=== PATIENT | male | born 1945 | race Caucasian/White ===

== ENCOUNTER 2017-05-19 10:38 | Inpatient (IN) | payer MEDICARE, BC ==
[~2017-05-19] VITALS: Ht 185.4 cm; Wt 103.0 kg
[~2017-05-19 10:38] MED LIST: B COMPLEX1 TA2 PO; B-1250 MCG PO; ELITE MAGNESIUM1 TAB PO; EPA FISH OIL1000 MG PO; FE-2020 MG PO; LOPURIN300 MG PO; MAG-OX 400400 MG PO; MAGNESIUM PO; VITAMIN; [UNRECOGNIZED DRUG - OTHER] PO
[2017-05-19 12:47] VITALS: BP 131/71; PULSE 84; TEMP 98
[2017-05-19 13:41] LABS: BASO % 0.3 % (0.0-2.0); EOS # 0.1 (0.0-0.7); EOS % 1.4 % (0-4.0); GRAN # 4.2 (1.4-6.5); HEMATOCRIT 37.6 % (42.0-52.0); HEMOGLOBIN 12.6 g/dl (13.5-18.0); LYMPH # 0.7 (1.2-3.4); LYMPH % 12.2 % (20.0-51.0); MEAN CELL VOLUME 92 fl (80.0-100.0); MEAN CORPUSCULAR HEMOGLOBIN 31 pg (27.0-31.0); MEAN CORPUSCULAR HGB CONC 34 g/dl (33.0-37.0); MEAN PLATELET VOLUME 10.2 fl (7.4-10.4); MONO # 0.7 (0.1-0.6); MONO % 12.9 % (1.7-9.3); PLATELET COUNT 172 K/mm3 (130-400); RED BLOOD COUNT 4.08 M/mm3 (4.20-5.60); REDCELL DISTRIBUTION WIDTH-CV 15.5 % (11.5-14.5); WHITE BLOOD COUNT 5.7 K/mm3 (4.8-10.8)
[2017-05-19 13:46] LABS: PH 5 (5-8); SQUAMOUS EPITHELIAL 0-2 /hpf; URINE APPEARANCE Clear; URINE BACTERIA None Seen /hpf; URINE BILIRUBIN Negative (NEGATIVE); URINE BLOOD Negative (NEGATIVE); URINE COLOR Yellow; URINE GLUCOSE Negative (NEGATIVE); URINE KETONE Trace (NEGATIVE); URINE RBC 0-2 /hpf; URINE UROBILINOGEN Negative (NEGATIVE); URINE WBC 0-2 /hpf
[2017-05-19 13:47] LABS: ADJUSTED CALCIUM 8.7 mg/dL (8.4-10.2); ALBUMIN 3.6 gm/dL (3.5-5.0); BILIRUBIN,TOTAL 0.8 mg/dL (0.0-1.0); CALCIUM 8.4 mg/dL (8.4-10.2); CREATININE, serum 0.67 mg/dL (0.66-1.25); POTASSIUM 3.9 mmol/L (3.4-5.0); TOTAL PROTEIN 6.1 gm/dL (6.4-8.2)
[2017-05-19 13:52] LABS: INR 1.1 (0.8-3.0); PROTHROMBIN TIME 12.1 SECONDS (9.7-12.8)
[2017-05-19 16:01] VITALS: BP 114/50; PULSE 81; TEMP 98.8
[2017-05-19 16:45] VITALS: BP 112/57; PULSE 67
[2017-05-19 17:00] VITALS: BP 120/82; PULSE 84
[2017-05-19 18:01] VITALS: BP 130/81; PULSE 70
[2017-05-19] MEDS ORDERED: OMEGA-3 1000 MG1 CAP PO (20:17)
[2017-05-19] MEDS ORDERED: VITAMINC1000TA PO (20:18)
[2017-05-19] MEDS ORDERED: VITAMIN B11000 MCG/M IM (20:21)
[2017-05-19] MEDS ORDERED: MAGNESIUM200 MG PO (20:22)
[2017-05-19] MEDS ORDERED: CALCIUM 600MG+D1 TAB PO (20:23)
[2017-05-19] MEDS ORDERED: VITAMIN A10k PO (20:24)
[2017-05-19] MEDS ORDERED: D3-5050000 IU PO (20:25)
[2017-05-19] MEDS ORDERED: CENTRUM SILVER1 CTB PO (20:25)
[2017-05-19] MEDS ORDERED: NORVASC 5MG5 MG/TAB PO (20:26)
[2017-05-19] MEDS ORDERED: LOTENSIN20 MG PO (20:35)
[2017-05-19] MEDS ORDERED: PROSCAR 5MG5 MG PO (20:35)
[2017-05-19] MEDS ORDERED: ZYLOPRIM 300MG300 MG PO (20:36)
[2017-05-19] MEDS ORDERED: AMITRIPTYLINE H10 M1 PO (20:36)
[2017-05-19] MEDS ORDERED: XANAX 1MG1 MG PO (20:37)
[2017-05-19] MEDS ORDERED: ELIQUIS 5MG PO (20:37)
[2017-05-19] MEDS ORDERED: REQUIP 1MG T1 MG/TAB PO (20:38)
[2017-05-19] MEDS ORDERED: AMBIEN CR 12.12.5 MG PO (20:44)
[2017-05-19] MEDS ORDERED: LYRICA 100MG C100 M1 PO (20:45)
[2017-05-19 22:02] VITALS: BP 130/60; PULSE 103; TEMP 98.1
[2017-05-20] VITALS (7 sets, daily range): BP systolic 82–137; BP diastolic 46–71; PULSE 92–102; TEMP 97.5–99.1
[2017-05-21] VITALS (9 sets, daily range): BP systolic 93–125; BP diastolic 48–67; PULSE 73–128; TEMP 37.4
[2017-05-22] VITALS (14 sets, daily range): BP systolic 91–149; BP diastolic 43–72; PULSE 81–120; TEMP 97.7–100.3
[2017-05-22 07:48] LABS: HEMATOCRIT 34.3 % (42.0-52.0); HEMOGLOBIN 11.1 g/dl (13.5-18.0)
[2017-05-22 07:53] LABS: CALCIUM 8.2 mg/dL (8.4-10.2); CREATININE, serum 0.67 mg/dL (0.66-1.25); POTASSIUM 3.4 mmol/L (3.4-5.0)
[2017-05-22 09:38] LABS: BASO % 0.5 % (0.0-2.0); EOS # 0.2 (0.0-0.7); EOS % 3.6 % (0-4.0); GRAN # 4.4 (1.4-6.5); GRAN % 69.6 % (42.2-75.2); HEMATOCRIT 34.4 % (42.0-52.0); HEMOGLOBIN 11.1 g/dl (13.5-18.0); LYMPH # 0.6 (1.2-3.4); LYMPH % 9.6 % (20.0-51.0); MEAN CELL VOLUME 96 fl (80.0-100.0); MEAN CORPUSCULAR HEMOGLOBIN 31 pg (27.0-31.0); MEAN CORPUSCULAR HGB CONC 32 g/dl (33.0-37.0); MEAN PLATELET VOLUME 11.3 fl (7.4-10.4); MONO % 16.4 % (1.7-9.3); PLATELET COUNT 172 K/mm3 (130-400); RED BLOOD COUNT 3.57 M/mm3 (4.20-5.60); REDCELL DISTRIBUTION WIDTH-CV 15.5 % (11.5-14.5); WHITE BLOOD COUNT 6.3 K/mm3 (4.8-10.8)
[2017-05-22 12:03] LABS: PH 5 (5-8); SQUAMOUS EPITHELIAL None Seen /hpf; URINE APPEARANCE Clear; URINE BACTERIA None Seen /hpf; URINE BILIRUBIN Negative (NEGATIVE); URINE BLOOD 1+ (NEGATIVE); URINE COLOR Yellow; URINE GLUCOSE Negative (NEGATIVE); URINE KETONE Negative (NEGATIVE); URINE RBC >50 /hpf; URINE UROBILINOGEN >=4.0 mg/dL (NEGATIVE); URINE WBC 0-2 /hpf
[2017-05-23] VITALS (7 sets, daily range): BP systolic 88–128; BP diastolic 49–64; PULSE 79–109; TEMP 97.3–99
[2017-05-23 07:08] LABS: HEMATOCRIT 31.1 % (42.0-52.0)
[2017-05-24 02:25] VITALS: BP 97/41; PULSE 88; TEMP 98.3
[2017-05-24 06:05] VITALS: BP 105/56; PULSE 75; TEMP 98.6
[2017-05-24] MEDS ORDERED: NORCO 325 MG-7.1 TAB PO (09:09)
[2017-05-24] MEDS ORDERED: TYLENOL 325MG325 MG PO (09:09)
[2017-05-24] MEDS ORDERED: CELEBREX 200MG200 MG PO (10:44)
[2017-05-24 10:47] VITALS: BP 109/56; PULSE 80; TEMP 98
== END 2017-05-24 11:26 | DRG 481 ==
LOC: SURG 10:38
PROVIDERS: Family Medicine; Nurse Practitioner; Orthopaedic Surgery
PROC: 0QSC04Z Reposition Left Lower Femur with Internal Fixation Device, Open Approach (ICD-10-PCS; principal; 2017-05-21 13:00)
DX: S72.455A Nondisplaced supracondylar fracture without intracondylar extension of lower end of left femur, initial encounter for closed fracture (principal); M97.12XA Periprosthetic fracture around internal prosthetic left knee joint, initial encounter; S90.32XA Contusion of left foot, initial encounter; G47.33 Obstructive sleep apnea (adult) (pediatric); W10.8XXA Fall (on) (from) other stairs and steps, initial encounter; W17.89XA Other fall from one level to another, initial encounter; Y92.833 Campsite as the place of occurrence of the external cause; R50.9 Fever, unspecified; Z79.02 Long term (current) use of antithrombotics/antiplatelets; Z98.84 Bariatric surgery status; Z87.891 Personal history of nicotine dependence; I10 Essential (primary) hypertension; N40.0 Benign prostatic hyperplasia without lower urinary tract symptoms; G47.00 Insomnia, unspecified; I48.91 Unspecified atrial fibrillation
CPT/HCPCS: 99222-AI; 99232-AI; 99239; A4315; A9284; C1713; C1776; J0171; J0690; J2250; J2270; J2704; J2765; J2795; J3010; L1832

== ENCOUNTER 2017-05-24 10:01 | Inpatient (IN) | payer MEDICARE, BC ==
[~2017-05-24] VITALS: Ht 185.4 cm; Wt 106.0 kg
[~2017-05-24 10:01] MED LIST changes: +AMBIEN CR 12.12.5 MG PO; +AMITRIPTYLINE H10 M1 PO; +CALCIUM 600MG+D1 TAB PO; +CENTRUM SILVER1 CTB PO; +D3-5050000 IU PO; +ELIQUIS 5MG PO; +LOTENSIN20 MG PO; +LYRICA 100MG C100 M1 PO; +MAGNESIUM200 MG PO; +NORCO 325 MG-7.1 TAB PO; +NORVASC 5MG5 MG/TAB PO; +OMEGA-3 1000 MG1 CAP PO; +PROSCAR 5MG5 MG PO; +REQUIP 1MG T1 MG/TAB PO; +TYLENOL 325MG325 MG PO; +VITAMIN A10k PO; +VITAMIN B11000 MCG/M IM; +VITAMINC1000TA PO; +XANAX 1MG1 MG PO; +ZYLOPRIM 300MG300 MG PO
[2017-05-24] MEDS ORDERED: CELEBREX 200MG200 MG PO (10:44)
[2017-05-24 13:36] VITALS: BP 111/80; PULSE 94; TEMP 97.4
[2017-05-24 16:30] VITALS: BP 107/55; PULSE 88; TEMP 98
[2017-05-24 18:00] VITALS: BP 111/80; PULSE 64; TEMP 97.4
[2017-05-25 01:43] VITALS: BP 112/51; PULSE 89; TEMP 98.2
[2017-05-25 04:49] VITALS: BP 98/51; PULSE 82; TEMP 98.8
[2017-05-25 16:02] VITALS: BP 112/56; PULSE 85; TEMP 97
[2017-05-26 06:43] VITALS: BP 111/67; PULSE 108; TEMP 98.9
[2017-05-26 17:43] VITALS: BP 125/63; PULSE 63; TEMP 98.9
[2017-05-27 05:15] VITALS: BP 116/70; PULSE 94; TEMP 97.8
[2017-05-27 18:03] VITALS: BP 126/72; PULSE 90; TEMP 97.8
[2017-05-28 05:13] VITALS: BP 141/77; PULSE 8; TEMP 98.7
[2017-05-28 07:52] VITALS: PULSE 84
[2017-05-28 16:13] VITALS: BP 145/86; PULSE 84; TEMP 98.3
[2017-05-29 04:26] VITALS: BP 131/78; PULSE 81; TEMP 98.6
[2017-05-29 18:00] VITALS: BP 136/73; PULSE 79; TEMP 99.9
[2017-05-30 05:16] VITALS: BP 126/72; PULSE 71; TEMP 97
[2017-05-30 15:50] VITALS: BP 137/69; PULSE 76; TEMP 98.1
[2017-05-31 04:38] VITALS: BP 124/72; PULSE 71; TEMP 98
[2017-05-31 17:40] VITALS: BP 136/63; PULSE 87; TEMP 98.3
[2017-06-01 05:00] VITALS: BP 122/70; PULSE 60; TEMP 98.5
[2017-06-01 17:03] VITALS: BP 111/66; PULSE 82; TEMP 97.7
[2017-06-02 04:30] VITALS: BP 111/65; PULSE 77; TEMP 98.1
[2017-06-02 17:41] VITALS: BP 126/77; PULSE 74; TEMP 97.6
[2017-06-03 04:51] VITALS: BP 132/63; PULSE 75; TEMP 96.8
[2017-06-03 16:18] VITALS: BP 121/67; PULSE 62; TEMP 98.2
[2017-06-04 04:26] VITALS: BP 116/71; PULSE 90; TEMP 97.9
[2017-06-04 19:00] VITALS: BP 136/64; PULSE 72; TEMP 99.4
[2017-06-05 05:39] VITALS: BP 130/75; PULSE 67; TEMP 98.3
[2017-06-06 06:06] VITALS: BP 115/67; PULSE 84; TEMP 98.7
[2017-06-06 17:59] VITALS: BP 125/71; PULSE 66; TEMP 98.2
[2017-06-07 04:40] VITALS: BP 118/73; PULSE 80; TEMP 97.2
[2017-06-07 04:54] VITALS: BP 118/73; PULSE 80; TEMP 97.2
[2017-06-07 18:00] VITALS: BP 114/57; PULSE 77; TEMP 98.5
[2017-06-08 04:31] VITALS: BP 128/77; PULSE 77; TEMP 97.5
[2017-06-08 16:10] VITALS: BP 119/65; PULSE 65; TEMP 97.8
[2017-06-09 08:15] VITALS: BP 115/60; PULSE 79; TEMP 98.4
[2017-06-09] MEDS ORDERED: ELIQUIS 5MG PO (12:15)
[2017-06-09] MEDS ORDERED: NORCO 325 MG-7.1 TAB PO (12:16)
[2017-06-09] MEDS ORDERED: XANAX 1MG1 MG PO (12:17)
[2017-06-09] MEDS ORDERED: XANAX 0.5MG0.5 MG PO (12:17)
== END 2017-06-09 15:30 | disposition home or self-care (01) | DRG 561 ==
DX: S72.455D Nondisplaced supracondylar fracture without intracondylar extension of lower end of left femur, subsequent encounter for closed fracture with routine healing (principal); M97.02XD Periprosthetic fracture around internal prosthetic left hip joint, subsequent encounter; W18.30XD Fall on same level, unspecified, subsequent encounter; I48.91 Unspecified atrial fibrillation; I10 Essential (primary) hypertension; G47.33 Obstructive sleep apnea (adult) (pediatric); Z98.84 Bariatric surgery status
CPT/HCPCS: 99222-AI; 99232-AI; 99239; J3420